=== PATIENT | female | born 1965 | race Caucasian/White ===

== ENCOUNTER 2018-06-02 12:49 | Emergency (ER) | payer OTHER ==
--- NOTE | 2018-06-02 14:14 | EDPHYS ---
Physician Documentation [facility] Name: Rosanne Botello Age: 53 yrs Sex: Female : 1965 Arrival Date: 06/02/2018 Time: 12:52 Bed 15 Private MD: ED Physician Eros Escobar HPI: 06/02 14:11 This 53 yrs old Female presents to ER via Ambulatory with complaints of Skin pm1 Problem - Face. 14:11 the patient presents with a swollen area of the left preauricular area. Description: pm1 raised, swollen. 14:11 Onset: The symptoms/episode began/occurred 2 day(s) ago. Possible cause(s): unknown. pm1 Associated signs and symptoms: Pertinent negatives: discharge, drainage, fever. Modifying factors: the symptoms are alleviated by nothing, the symptoms are aggravated by nothing. The patient has not experienced similar symptoms in the past. Patient with pimple like area to left cheek and swelling and pain to left preauricular area. No dental pain, earache, fever, chills, trismus. 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 - Social history:: Smoking status: Patient/guardian denies using tobacco. - Ebola Screening: : Patient denies travel to an Ebola-affected area in the 21 days before illness onset. ROS: 14:11 Constitutional: Negative for fever, chills, and weight loss, Eyes: Negative for injury, pm1 pain, redness, and discharge, ENT: Negative for injury, pain, and discharge, Neck: Negative for injury, pain, and swelling, Cardiovascular: Negative for chest pain, palpitations, and edema, Respiratory: Negative for shortness of breath, cough, wheezing, and pleuritic chest pain, Abdomen/GI: Negative for abdominal pain, nausea, vomiting, diarrhea, and constipation, Back: Negative for injury and pain, MS/Extremity: Negative for injury and deformity. 14:11 Neuro: Negative for headache, weakness, numbness, tingling, and seizure. 14:11 Skin: Positive for abscess, of the left cheek. Exam: 14:11 Constitutional: This is a well developed, well nourished patient who is awake, alert, pm1 and in no acute distress. Head/Face: Normocephalic, atraumatic. Eyes: Pupils equal round and reactive to light, extra-ocular motions intact. Lids and lashes normal. Conjunctiva and sclera are non-icteric and not injected. Cornea within normal limits. Periorbital areas with no swelling, redness, or edema. ENT: Nares patent. No nasal discharge, no septal abnormalities noted. Tympanic membranes are normal and external auditory canals are clear. Oropharynx with no redness, swelling, or masses, exudates, or evidence of obstruction, uvula midline. Mucous membranes moist. Neck: Trachea midline, no thyromegaly or masses palpated, and no cervical lymphadenopathy. Supple, full range of motion without nuchal rigidity, or vertebral point tenderness. No Meningismus. Chest/axilla: Normal chest wall appearance and motion. Nontender with no deformity. No lesions are appreciated. Cardiovascular: Regular rate and rhythm with a normal S1 and S2. No gallops, murmurs, or rubs. Normal PMI, no JVD. No pulse deficits. Respiratory: Lungs have equal breath sounds bilaterally, clear to auscultation and percussion. No rales, rhonchi or wheezes noted. No increased work of breathing, no retractions or nasal flaring. Abdomen/GI: Soft, non-tender, with normal bowel sounds. No distension or tympany. No guarding or rebound. No evidence of tenderness throughout. Back: No spinal tenderness. No costovertebral tenderness. Full range of motion. 14:11 Skin: Appearance: normal except for affected area, small pustule present to lateral aspect of left zygomatic area. tender mobile left preauricular lymph nodes. 14:11 Skin: No fluctuance, surrounding cellulitis to left zygomatic pustule. pm1 Vital Signs: 13:30 BP 190 / 90; Pulse 76; Resp 18; Temp 98.3; Pulse Ox 95% on R/A; Weight 122.47 kg (R); aj1 Height 5 ft. 10 in. (177.80 cm) (R); Pain 5/10; 14:31 BP 156 / 80; Pulse 72; Resp 17; Pulse Ox 97% on R/A; kr2 13:30 Body Mass Index 38.74 (122.47 kg, 177.80 cm) aj1 MDM: 13:44 Patient medically screened. pm1 14:11 Data reviewed: vital signs. Data interpreted: Pulse oximetry: on room air is 95 %. pm1 Interpretation: normal. Counseling: I had a detailed discussion with the patient and/or guardian regarding: the historical points, exam findings, and any diagnostic results supporting the discharge/admit diagnosis, the need for outpatient follow up, to return to the emergency department if symptoms worsen or persist or if there are any questions or concerns that arise at home. Administered Medications: 14:22 Drug: TORadol 60 mg Route: IM; Site: right gluteus; kr2 14:30 Follow up: Response: No adverse reaction kr2 Disposition: 17:47 Co-signature as Attending Physician, Eros Escobar MD. rn Disposition: 06/02/18 14:13 Discharged to Home. Impression: Cutaneous abscess of face. - Condition is Stable. - Discharge Instructions: Skin Abscess. - Prescriptions for Bactrim DS 800- 160 mg Oral Tablet - take 1 tablet by ORAL route every 12 hours for 10 days; 20 tablet. Diflucan 150 mg Oral Tablet - take 1 tablet by ORAL route one time for 1 day; 1 tablet. - Medication Reconciliation Form, Thank You Letter, Antibiotic Education, Prescription Opioid Use form. - Follow up: Emergency Department; When: As needed; Reason: Worsening of condition. Follow up: Private Physician; When: 2 - 3 days; Reason: Recheck today's complaints, Continuance of care, Re-evaluation by your physician. - Problem is new. - Symptoms have improved. Signatures: Shelli Smith, RN RN aj1 Eros Escobar MD MD rn Marinas, Patrick, COMPLIANCE ADMINISTRATOR COMPLIANCE ADMINISTRATOR pm1 Tonia Pandey RN RN kr2 Corrections: (The following items were deleted from the chart) 14:34 14:13 06/02/2018 14:13 Discharged to Home. Impression: Cutaneous abscess of face. kr2 Condition is Stable. Forms are Medication Reconciliation Form, Thank You Letter, Antibiotic Education, Prescription Opioid Use. Follow up: Emergency Department; When: As needed; Reason: Worsening of condition. Follow up: Private Physician; When: 2 - 3 days; Reason: Recheck today's complaints, Continuance of care, Re-evaluation by your physician. Problem is new. Symptoms have improved. pm1
--- NOTE | 2018-06-02 14:14 | ER ---
Nurse's Notes [facility] Name: Rosanne Botello Age: 53 yrs Sex: Female : 1965 Arrival Date: 06/02/2018 Time: 12:52 Bed 15 Private MD: Diagnosis: Cutaneous abscess of face Presentation: 06/02 13:24 Presenting complaint: Patient states: Swelling to the left cheek that started 2 days aj1 ago, states that it is starting to give her a headache. Pain radiates to the left jaw. Transition of care: patient was not received from another setting of care. Onset of symptoms was May 31, 2018. Risk Assessment: Do you want to hurt yourself or someone else? Patient reports no desire to harm self or others. Initial Sepsis Screen: Does the patient meet any 2 criteria? No. Patient's initial sepsis screen is negative. Does the patient have a suspected source of infection? No. Patient's initial sepsis screen is negative. Care prior to arrival: None. 13:24 Method Of Arrival: Ambulatory aj1 13:24 Acuity: RC 3 aj1 Triage Assessment: 13:30 General: Appears in no apparent distress. comfortable, Behavior is calm, cooperative, aj1 appropriate for age. Pain: Complains of pain in left cheek Pain radiates to left jaw Pain currently is 5 out of 10 on a pain scale. Neuro: Level of Consciousness is awake, alert, obeys commands. Cardiovascular: Patient's skin is warm and dry. Respiratory: Airway is patent Respiratory effort is even, unlabored, Respiratory pattern is regular, symmetrical. 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 - Social history:: Smoking status: Patient/guardian denies using tobacco. - Ebola Screening: : Patient denies travel to an Ebola-affected area in the 21 days before illness onset. Screenin:35 Abuse screen: Denies threats or abuse. Denies injuries from another. Nutritional kr2 screening: No deficits noted. Tuberculosis screening: No symptoms or risk factors identified. Fall Risk None identified. Assessment: 13:35 General: Appears in no apparent distress. comfortable, well groomed, well developed, kr2 well nourished, Behavior is calm, cooperative, appropriate for age. Pain: Complains of pain in face Pain radiates to left jaw Pain currently is 5 out of 10 on a pain scale. Quality of pain is described as aching, tender, Is continuous. Neuro: Level of Consciousness is awake, alert, obeys commands, Oriented to person, place, time, situation, Appropriate for age. Cardiovascular: Capillary refill < 3 seconds in bilateral fingers Patient's skin is warm and dry. Respiratory: Airway is patent Respiratory effort is even, unlabored, Respiratory pattern is regular, symmetrical. Derm: Skin is intact, is healthy with good turgor, Skin is pink, warm \T\ dry. Musculoskeletal: Circulation, motion, and sensation intact. 13:35 EENT: Oral mucosa is moist. Throat is clear. kr2 14:20 Reassessment: Patient appears in no apparent distress at this time. Patient and/or kr2 family updated on plan of care and expected duration. Pain level reassessed. Patient is alert, oriented x 3, equal unlabored respirations, skin warm/dry/pink. Vital Signs: 13:30 BP 190 / 90; Pulse 76; Resp 18; Temp 98.3; Pulse Ox 95% on R/A; Weight 122.47 kg (R); aj1 Height 5 ft. 10 in. (177.80 cm) (R); Pain 5/10; 14:31 BP 156 / 80; Pulse 72; Resp 17; Pulse Ox 97% on R/A; kr2 13:30 Body Mass Index 38.74 (122.47 kg, 177.80 cm) aj1 ED Course: 12:52 Patient arrived in ED. sb2 13:28 Triage completed. aj1 13:30 Arm band placed on Patient placed in an exam room. aj1 13:32 Daniel Matthew NP is PHCP. pm1 13:32 Eros Escobar MD is Attending Physician. pm1 13:35 Patient has correct armband on for positive identification. Bed in low position. Call kr2 light in reach. Side rails up X 1. Pulse ox on. NIBP on. Door closed. Warm blanket given. Head of bed elevated. 14:16 Tonia Pandey, RN is Primary Nurse. kr2 14:30 No provider procedures requiring assistance completed. Patient did not have IV access kr2 during this emergency room visit. Administered Medications: 14:22 Drug: TORadol 60 mg Route: IM; Site: right gluteus; kr2 14:30 Follow up: Response: No adverse reaction kr2 Outcome: 14:13 Discharge ordered by MD. pm1 14:30 Discharged to home ambulatory. kr2 14:30 Condition: good 14:30 Discharge instructions given to patient, Instructed on discharge instructions, follow up and referral plans. medication usage, Demonstrated understanding of instructions, follow-up care, medications, Prescriptions given X 2. 14:34 Patient left the ED. kr2 Signatures: Shelli Smith RN RN aj1 Daniel Matthew, MELON PACKER MELON PACKER pm1 Tonia Pandey, DAVID RN kr2 Liv Camara sb2 Corrections: (The following items were deleted from the chart) 13:28 13:02 Presenting complaint: aj1 aj1 14:29 13:35 Pain: Complains of pain in face Pain currently is 5 out of 10 on a pain scale. kr2 Quality of pain is described as aching, tender, Is continuous, kr2 20:12 14:27 EENT: Oral mucosa is moist. Throat is clear kr2 kr2
[2018-06-02] MEDS ORDERED: KETOROLAC 30 MG/ML INJ ONE (14:23)
== END 2018-06-02 14:34 | disposition home or self-care (01) ==
LOC: ER 12:49
DX: L02.01 Cutaneous abscess of face (principal); Z88.5 Allergy status to narcotic agent; E11.9 Type 2 diabetes mellitus without complications; Z79.4 Long term (current) use of insulin; Z79.84 Long term (current) use of oral hypoglycemic drugs; I10 Essential (primary) hypertension
CPT/HCPCS: 96372; 99283

== ENCOUNTER 2021-01-29 15:14 | Inpatient (IN) | payer OTHER, SELFPAY ==
--- OUTSIDE RECORDS SUMMARY | 2021-01-29 15:17 | XMS REPORT | Continuity of Care Document ---
:1965 Author Organization [facility] t Address [address] [place] [address] Care Team Providers Name Role Phone Kael Ferguson MD Attending Clinician Maritza Reeves DO Attending Clinician Joana Sims Attending Clinician Aneudy QUICK Attending Clinician Aneudy QUICK Admitting Clinician Payers Payer Name Policy Type Policy Number Effective Date Expiration Date S ource Problems Condition Condition Condition Status Onset Resolution Last Treating Co mments Source Name Details Category Date Date Treatment Clinician Date CHRISTINE Problem Active 2020-10-14 Memor ia (obstructi 05:10:41 l ve sleep CHRISTINE [place] apnea) (obstructi ve sleep apnea) Active Problem 10/14/2020 Enayet Rahim Leg edema Diagnosis Active 2019-05-25 Memoria 04:10:44 l Leg [place] edema Active Diagnosis 05/25/2019 Enayet Rahim Pulmonary Problem Active 2020-10-14 Me moria hypertensi 05:10:41 l on [place] Pulmonary hypertensi on Active Problem 0 Yannick Hurst Arthritis Problem Active 2020-10-14 Me moria 05:10:41 l [place] Arthritis Active Problem 10/14/2020 Enleif Hurst BMI Problem Active 2020-10-14 Memor ia 39.0-39.9, 05:10:41 l adult BMI [place] 39.0-39.9, adult Active Problem 10/14/2020 Yannick Hurst Fibromyalg Problem Active 2020-10-14 M emoria ia 05:10:41 l [place] Fibromyalg ia Active Problem 0 Yannick Hurst HTN Problem Active 2020-10-14 Memor ia (hypertens 05:10:41 l ion), HTN [place] benign (hypertens ion), benign Active Problem 10/14/2020 Yannick Hurst Breast Diagnosis Active 2017-12-18 Mem oria cancer 05:10:25 l screening Breast Megan nn cancer screening Active Diagnosis 12/18/2017 Yannick Hurst Vaginal Diagnosis Active 2018-01-09 Me moria yeast 04:10:03 l infection Vaginal Herm rudy yeast infection Active Diagnosis 01/09/2018 Yannick Hurst Tooth Diagnosis Active 2018-01-09 Mem oria abscess 04:10:03 l Tooth [place] abscess Active Diagnosis 01/09/2018 Yannick Hurst Acute Diagnosis Active 2018-12-23 Mem oria tracheobro 05:10:57 l nchitis Acute [place] tracheobro nchitis Active Diagnosis 12/23/2018 Yannick Hurst SOB Diagnosis Active 2018-12-23 Mem oria (shortness 05:10:57 l of breath) SOB Octavio n (shortness of breath) Active Diagnosis 12/23/2018 Yannick Hurst Flu-like Diagnosis Active 2020-03-05 M emoria symptoms 04:11:02 l Flu-like Octavio n symptoms Active Diagnosis 03/05/2020 Enleif Hurst Herpes Diagnosis Active 2019-08-09 Mem oria zoster 04:10:53 l without Herpes [place] complicati zoster on without complicati on Active Diagnosis 08/09/2019 Enleif Hurst [place] eye Diagnosis Active 2019-08-09 M emoria disease of 04:10:53 l both eyes [place] eye Her sharp disease of both eyes Active Diagnosis 08/09/2019 Enayet Rahim Advice Diagnosis Active 2020-03-05 Mem oria given 04:11:02 l about 2019 Advice Herm rudy novel given coronaviru 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 Active Diagnosis 03/05/2020 Enswapnilet Rahim Fatigue, Diagnosis Active 2020-03-17 M emoria unspecifie 04:10:23 l d type Fatigue, Octavio n unspecifie d type Active Diagnosis 03/17/2020 Enswapnilet Rahim CHF with Diagnosis Active 2020-07-28 M emoria left 04:10:44 l ventricula CHF with He rmann r left diastolic ventricula dysfunctio r n, NYHA diastolic class 2 dysfunctio n, NYHA class 2 Active Diagnosis 07/28/2020 Enayet Rahim Respirator Diagnosis Active 2020-07-28 Memoria y failure 04:10:44 l for > 28 [place] days Respirator y failure for > 28 days Active Diagnosis 07/28/2020 Enswapnilet him Type 2 Problem Active 2020-10-14 Memor ia diabetes 05:10:41 l mellitus Type 2 Octavio n without diabetes complicati mellitus on, without without complicati long-term on, current without use of long-term insulin current use of insulin Active Problem 10/14/2020 Enayet Rahim Anxiety Problem Active 2020-10-14 Keith sanaz 05:10:41 l Anxiety [place] Active Problem 10/14/2020 Enswapnilet Rahim Cervical Diagnosis Active 2017-08-05 M emoria stenosis 04:11:49 l of spine Cervical Herm rudy stenosis of spine Active Diagnosis 08/05/2017 Enayet Rahim Encounter Diagnosis Active 2017-08-05 Memoria to 04:11:49 l establish [place] care Encounter to establish care Active Diagnosis 08/05/2017 Enleif Karimim Allergies, Adverse Reactions, Alerts Allergy Allergy Status Severity Reaction(s) Onset Inactive Treating Comm ents Source Name Type Date Date Clinician narco narco Active nightmares Memori a 9-21 l 00:00: [place] 00 hydrocod DA Active [facility] 00:[facility]: [address] Social History Social Habit Start Date Stop Date Quantity Comments Source Sex Assigned At [facility] Medications Ordered Filled Start Stop Current Ordering Indication Dosage Frequency Signature Comments Components Source Medication Medication Date Date Medication? Clinician (SIG) Name Name Pravastatin 2020-1 Yes Kate 1 tablet M emoria Sodium 0-06 Teressa l 04:10: [place] 46 Aspirin 2020-1 Yes Kate 1 tablet Memor ia Adult Low 0-06 Teressa l Dose 04:10: [place] 46 Gabapentin 2019- Yes Kate as Memori a 0-06 Te[place] directed l 04:10: [place] 46 Novolin N 2019- Yes Kate 20 units Mem oria 0-06 Teressa morning 15 l 04:10: units at [place] 46 night Ketorolac 2020- Yes Kate 1 tablet Mem oria Tromethamin 0-06 Teressa with food l e 04:10: or milk as [place] 46 needed Metoprolol 2019- Yes Kate 1 tablet Me moria Tartrate 0-06 Teressa with food l 04:10: [place] 46 Cyclobenzap 2019- Yes Kate 1 tablet M emoria rine HCl 0-06 Teressa as needed l 04:10: [place] 46 Lasix 2020-1 Yes Kate 1 tablet Memoria 0-06 Teressa l 04:10: [place] 46 Bumex 2020-1 Yes Kate 1 tablet Memoria 0-06 Teressa l 04:10: [place] 46 Novolin 2020-1 Yes Kate 45 units Memor ia 70/30 0-06 Teressa l 04:10: [place] 46 Olmesartan 2020-1 Yes Kate 1 tablet Me moria Medoxomil 0-06 Teressa l 04:10: [place] 46 Metolazone 2020-1 Yes Kate 1 tablet Me moria 0-06 Teressa l 04:10: [place] 46 Lisinopril 2020-0 Yes Kate 1 tablet Me moria 5-26 Teressa l 04:10: [place] Azithromyci 2020-0 Yes Kate 2 tablets Memoria n 5-26 Teressa on the l 04:10: first day, [place] then 1 tablet daily for 4 days Losartan 2020-0 Yes Kate 1 tablet Keith sanaz Potassium 5-26 Teressa l 04:10: [place] Oseltamivir 2020-0 Yes Kate 1 capsule Memoria Phosphate 5-26 Teressa l 04:10: PredniSONE 2020-0 Yes Kate 1 tablet Me moria 5-26 Teressa l 04:10: Metolazone 2020-0 Yes Kate 1 tablet Me moria 3-11 Teressa l 00:00: Azithromyci 2019-1 Yes Kate 2 tablet M emoria n 2-27 Teressa on the l 00:00: first day, then 1 tablet daily for four days Gabapentin 2019- Yes Kate 1 capsule M emoria 2-18 Teressa l 05:10: [place] 38 Zofran 2019- Yes Kate 1 tablet Memori a 1-21 Teressa l 00:00: Metoprolol 2019- Yes Kate TAKE ONE Me moria Tartrate 0-18 Teressa (1) l 04:10: TABLET(S) [place] BY MOUTH TWICE A DAY WITH FOOD. Gabapentin 2019- Yes Kate 1 capsule M emoria 0-18 Teressa l 04:10: [place] 55 Ciprofloxac 2019- Yes Kate 1 drop Mem oria in HCl 0-14 Teressa into l 00:00: affected eye while awake Cyclobenzap 2019-0 Yes Kate 1 tablet M emoria rine HCl 8-03 Teressa as needed l 04:10: [place] 46 Metoprolol 2019-0 Yes Kate 2 tablets M emoria Tartrate 8-03 Teressa in the l 04:10: morning [place] 44 and 1 in the evening Lasix 2019-0 Yes Kate 1 tablet Memoria 8-03 Teressa l 04:10: [place] 46 Olmesartan 2019-0 Yes Kate 1 tablet Me moria Medoxomil 7-25 Teressa l 00:00: Cyclobenzap 2019-0 Yes Kate 1 tablet M emoria rine HCl 3-29 Teressa as needed l 00:00: ProAir 2019-0 Yes Kate 2 puffs as Keith sanaz RespiClick 2-27 Teressa needed l 00:00: PredniSONE 2019-0 Yes Kate 1 tablet Me moria 2-27 Teressa l 00:00: Ketorolac 2019-0 Yes Kate 1 tablet Mem oria Tromethamin 2-27 Teressa with food l e 00:00: or milk as needed Nebulizer 2018-1 Yes Kate as Memoria 2-21 Teressa directed l 00:00: Albuterol 2018-1 Yes Kate 3 ml as Keith sanaz Sulfate 2-21 Teressa needed l 00:00: Levaquin 2018-1 Yes Kate 1 tablet Keith sanaz 2-21 Teressa l 00:00: Metoprolol 2018-1 Yes Kate 1 tablet Me moria Tartrate 2-20 Teressa with food l 05:11: 21 ProAir HFA 2018-1 Yes Kate 2 puffs as Memoria 2-13 Teressa needed l 00:00: Benzonatate 2018-1 Yes Kate 1 capsule Memoria 2-13 Teressa l 00:00: Humulin R 2018-1 Yes Kate as Memoria 0-06 Teressa directed l 04:11: 36 Flexeril 2018-0 Yes Kate 1 tablet Keith sanaz 5-13 Teressa l 00:00: Flexeril 2018-0 Yes Kate 1 tablet Keith sanaz 4-03 Teressa l 00:00: Losartan 2018-0 Yes Kate 1 tablet Keith sanaz Potassium 3-13 Teressa l 00:00: Amoxicillin 2018-0 Yes Kate 1 tablet M emoria 3-13 Teressa l 00:00: Diflucan 2018-0 Yes Kate 1 tablet Keith sanaz 3-13 Teressa l 00:00: Humulin R 2018-0 Yes Kate as Memoria 2-26 Teressa directed l 05:10: Ketorolac 2018-0 Yes Kate 1 tablet Mem oria Tromethamin 2-12 Teressa with food l e 00:00: or milk as needed Ketorolac 2018-0 Yes Kate 1 tablet Mem oria Tromethamin 1-03 Teressa with food l e 00:00: or milk as needed Humulin R 2017-1 Yes Kate as Memoria 0-17 Teressa directed l 00:00: GlipiZIDE 2017-1 Yes Kate 1 tablet Mem oria ER 0-05 Teressa l 00:00: Gabapentin 2017-1 Yes Kate as Memori a 0-05 Teressa directed l 00:00: [place] 00 Immunizations Ordered Immunization Filled Immunization Date Status Commen ts Source Name Name Covid-19 Vaccine 2020-12-[address] [facility] (Pfizer/[employer] Vital Signs Vital Name Observation Time Observation Value Comments Source Weight 2020-07-13 21:15:00 [facility] [place] Height 2020-07-13 21:15:00 [facility] [place] Height 2020-03-13 20:45:00 [facility] [place] Height 2020-03-04 20:45:00 [facility] [place] Weight 2019-11-15 22:45:00 [facility] [place] Height 2019-11-15 22:45:00 [facility] [place] Temperature Oral (F) 2019-11-15 22:45:00 97.1 F [facility] [place] Diastolic (mm Hg) 2019-11-15 22:45:00 Mem orial [place] Systolic (mm Hg) 2019-11-15 22:45:00 Keith rial [place] Weight 2019-09-12 17:15:00 [facility] [place] Height 2019-09-12 17:15:00 [facility] [place] Temperature Oral (F) 2019-09-12 17:15:00 98.2 F [facility] [place] Diastolic (mm Hg) 2019-09-12 17:15:00 Mem orial [place] Systolic (mm Hg) 2019-09-12 17:15:00 Keith rial [place] Weight 2019-07-31 14:45:00 [facility] [place] Height 2019-07-31 14:45:00 [facility] [place] Temperature Oral (F) 2019-07-31 14:45:00 97.5 F [facility] [place] Diastolic (mm Hg) 2019-07-31 14:45:00 Mem orial [place] Systolic (mm Hg) 2019-07-31 14:45:00 Keith rial [place] Temperature Oral (F) 2019-05-16 19:45:00 98.6 F [facility] [place] Diastolic (mm Hg) 2019-05-16 19:45:00 Mem orial [place] Systolic (mm Hg) 2019-05-16 19:45:00 Keith rial [place] Weight 2019-05-16 19:45:00 [facility] [place] Height 2019-05-16 19:45:00 [facility] [place] Weight 2018-12-19 14:45:00 [facility] [place] Height 2018-12-19 14:45:00 [facility] [place] Temperature Oral (F) 2018-12-19 14:45:00 98.1 F [facility] [place] Diastolic (mm Hg) 2018-12-19 14:45:00 Mem orial [place] Systolic (mm Hg) 2018-12-19 14:45:00 Keith rial [place] Weight 2018-10-04 15:15:00 [facility] [place] Height 2018-10-04 15:15:00 [facility] [place] Temperature Oral (F) 2018-10-04 15:15:00 99.3 F [facility] [place] Diastolic (mm Hg) 2018-10-04 15:15:00 Mem orial [place] Systolic (mm Hg) 2018-10-04 15:15:00 Keith rial [place] Weight 2018-07-23 20:15:00 [facility] [place] Height 2018-07-23 20:15:00 [facility] [place] Temperature Oral (F) 2018-07-23 20:15:00 98.5 F [facility] [place] Diastolic (mm Hg) 2018-07-23 20:15:00 Mem orial [place] Systolic (mm Hg) 2018-07-23 20:15:00 Keith rial [place] Weight 2018-01-02 13:45:00 [facility] [place] Height 2018-01-02 13:45:00 [facility] [place] Temperature Oral (F) 2018-01-02 13:45:00 97.7 F [facility] [place] Diastolic (mm Hg) 2018-01-02 13:45:00 Mem orial [place] Systolic (mm Hg) 2018-01-02 13:45:00 Keith rial [place] Weight 2017-12-04 21:15:00 [facility] [place] Height 2017-12-04 21:15:00 [facility] [place] Temperature Oral (F) 2017-12-04 21:15:00 98.3 F [facility] [place] Diastolic (mm Hg) 2017-12-04 21:15:00 Mem orial [place] Systolic (mm Hg) 2017-12-04 21:15:00 Keith rial [place] Weight 2017-07-27 21:15:00 [facility] [place] Height 2017-07-27 21:15:00 [facility] [place] Temperature Oral (F) 2017-07-27 21:15:00 97.7 F [facility] [place] Diastolic (mm Hg) 2017-07-27 21:15:00 Mem orial [place] Systolic (mm Hg) 2017-07-27 21:15:00 Keith rial [place] Procedures This patient has no known procedures. Plan of Care Planned Activity Planned Date Details Comments Source Future Scheduled 2021-01-07 COVID-19 VACCINE ([facility] - [facility] series[facility] [code = COVID-19 VACCINE (2 - Pfizer 2-dose series)] Future Scheduled 2020-10-[address] [facility] - Test 00:00:00 (12+) [code = Medical Center DEPRESSION SCREENING (12+)] Future Scheduled 2020-06-[address] [facility] - Test 00:00:00 (#1) [code = [facility] INFLUENZA VACCINE (#1)] Future Scheduled 2017 SHINGLES VACCINES ([address] [facility] - Test 00:00:00 of 2) [code = Medical Center SHINGLES VACCINES (1 of 2)] Future Scheduled [address] [facility] 00:00:00 (procedure) [code = [facility] [id number]] Future Scheduled [address] [facility] 00:[facility]:00 [facility] of [facility] cervix (procedure) [code = 361183539] Future Scheduled 1986 DTAP/TDAP/TD VACCINES [facility] - Test 00:00:00 (1 - Tdap) [code = Medical C enter DTAP/TDAP/TD VACCINES (1 - Tdap)] Future Scheduled 1985 HEPATITIS C SCREENING [facility] Test 00:00:00 [code = HEPATITIS C Medical Center SCREENING] Future Scheduled [address] [facility] Test 00[facility]00:00 [facility] of [facility] breast (procedure) [code = 035200904] Future Scheduled [address] [facility] 00:00:00 [facility] of [facility] colon (procedure) [code = 477049733] Encounters Start End Encounter Admission Attending Care Care Encounter Source Date/Time Date/Time Type Type Clinicians Facility Department ID 2020-12-15 2020-12-15 Emergency Leandro, [facility] [id number] 11:12:00 13:27:00 Kiara Matthew [id number] [place] [id number] [place] [id number] 2020-10-30 2020-10-31 Emergency Carmen Castillo [facility] [id number] 16:02:00 13:32:00 RonnisadaffrankMonse Vipul [id number] [place] [id number] [place] [id number] 2020-10-13 2020-10-13 Outpatient Inpatient Inpatient [id number] [facility] 15:15:00 15:15:00 Providers [facility]iders [facility] 2020-07-13 2020-07-13 Outpatient Inpatient Inpatient [id number] [facility] 16:15:00 16:15:00 Providers Providers [facility] 2020-03-18 2020-03-18 Outpatient Inpatient Inpatient [id number] [facility] 13:36:00 13:36:00 Providers Providers [facility] 2020-03-13 2020-03-13 Outpatient Inpatient Inpatient [id number] [facility] 15:45:00 15:45:00 Providers Providers [facility] 2020-03-06 2020-03-06 Outpatient Inpatient Inpatient [id number] [facility] 10:57:00 10:57:00 Providers Providers [facility] 2020-03-05 2020-03-05 Outpatient Inpatient Inpatient [id number] [facility] 10:38:00 10:38:00 Providers Providers [facility] 2020-03-04 2020-03-04 Outpatient Inpatient Inpatient [id number] [facility] 15:45:00 15:45:00 Providers Providers [facility] 2020-02-21 2020-02-21 Outpatient Inpatient Inpatient [id number] [facility] 11:41:00 11:41:00 Providers Providers [facility] 2020-02-04 2020-02-04 Outpatient Inpatient Inpatient [id number] [facility] 15:49:00 15:49:00 Providers Providers [facility] 2020-02-04 2020-02-04 Outpatient Inpatient Inpatient [id number] [facility] 15:06:00 15:06:00 Providers Providers [facility] 2020-01-06 2020-01-06 Outpatient Inpatient Inpatient [id number] [facility] 09:57:00 09:57:00 Providers Providers [facility] 2020-01-01 2020-01-01 Outpatient Inpatient Inpatient [id number] [facility] 17:46:00 17:46:00 Providers Providers [facility] 2019-11-15 2019-11-15 Outpatient Inpatient Inpatient [id number] [facility] 16:45:00 16:45:00 Providers Providers [facility] 2019-10-18 2019-10-18 Outpatient Inpatient Inpatient [id number] [facility] 10:34:00 10:34:00 Providers Providers [facility] 2019-09-12 2019-09-12 Outpatient Inpatient Inpatient [id number] [facility] 11:15:00 11:15:00 Providers Providers [facility] 2019-09-12 2019-09-12 Outpatient Inpatient Inpatient [id number] [facility] 11:15:00 11:15:00 Providers Providers [facility] 2019-09-12 2019-09-12 Outpatient Inpatient Inpatient [id number] [facility] 11:15:00 11:15:00 Providers Providers [facility] 2019-09-12 2019-09-12 Outpatient Inpatient Inpatient [id number] [facility] 11:15:00 11:15:00 Providers Providers [facility] 2019-08-30 2019-08-30 Outpatient Inpatient Inpatient [id number] [facility] 08:41:00 08:41:00 Providers Providers [facility] 2019-07-31 2019-07-31 Outpatient Inpatient Inpatient [id number] [facility] 09:45:00 09:45:00 Providers Providers [facility] 2019-05-16 2019-05-16 Outpatient Inpatient Inpatient [id number] [facility] 14:45:00 14:45:00 Providers Providers [facility] 2019-01-21 2019-01-21 Outpatient Inpatient Inpatient [id number] [facility] 16:17:00 16:17:00 Providers Providers [facility] 2018-12-19 2018-12-19 Outpatient Inpatient Inpatient [id number] [facility] 08:45:00 08:45:00 Providers Providers [facility] 2018-10-12 2018-10-12 Outpatient Inpatient Inpatient [id number] [facility] 15:48:00 15:48:00 Providers Providers [facility] 2018-10-09 2018-10-09 Outpatient Inpatient Inpatient [id number] [facility] 10:13:00 10:13:00 Providers Providers [facility] 2018-10-04 2018-10-04 Outpatient Inpatient Inpatient [id number] [facility] 09:15:00 09:15:00 Providers Providers [facility] 2018-07-25 2018-07-25 Outpatient Inpatient Inpatient [id number] [facility] 08:59:00 08:59:00 Providers Providers [facility] 2018-07-23 2018-07-23 Outpatient Inpatient Inpatient [id number] [facility] 15:15:00 15:15:00 Providers Providers [facility] 2018-01-02 2018-01-02 Outpatient Inpatient Inpatient [id number] [facility]inic 08:45:00 08:45:00 Providers Providers al [facility] 2017-12-04 2017-12-04 Outpatient Inpatient Inpatient [id number] [facility]inic 15:15:00 15:15:00 Providers Providers [facility] 2017-10-13 2017-10-13 Outpatient Inpatient Inpatient [id number] [facility] 14:06:00 14:06:00 Providers Providers [facility] 2017-09-12 2017-09-12 Outpatient Inpatient Inpatient [id number] [facility]inic 15:29:00 15:29:00 Providers Providers al [facility] 2017-08-07 2017-08-07 Outpatient Inpatient Inpatient [id number] [facility] 14:38:00 14:38:00 Providers Providers [facility] 2017-07-27 2017-07-27 Outpatient Inpatient Inpatient [id number] [facility] 16:15:00 16:15:00 Providers Providers [facility] Results This patient has no known results.
--- NOTE | 2021-01-29 16:20 | RAD REPORT ---
EXAM DESCRIPTION: RAD - Chest Single View - 01/29/2021 4:05 pm CLINICAL HISTORY: DYSPNEA Chest pain. COMPARISON: No comparisons FINDINGS: Portable technique limits examination quality. Moderate bilateral pulmonary opacities are present likely representing pulmonary edema or pneumonia. The heart is moderately enlarged in size. No displaced fractures.
[2021-01-29 16:59] LABS: Absolute Lymphocytes (CBC) 2.7 K/uL (0.7-4.9); Basophils % 0.6 % (0-1.3); Hematocrit 34.4 % (36.0-45.0); Lymphocytes % 33.3 % (15.3-44.8); MPV 8.7 fL (7.6-11.3); RBC Red Blood Cell Count 4.02 M/uL (3.86-4.86)
[2021-01-29 17:07] LABS: Protime INR 1.15
[2021-01-29 17:25] LABS: ALT/SGPT 9 U/L (12-78); AST/SGOT 12 U/L (15-37); Albumin 2.9 g/dL (3.4-5.0); Alkaline Phosphatase 91 U/L (45-117); BUN Blood Urea Nitrogen 11 mg/dL (7-18); Bicarbonate 40 mmol/L (21-32); Bilirubin Direct < 0.1 mg/dL (0-0.2); Bilirubin Total 0.4 mg/dL (0.2-1.0); Glucose Level 259 mg/dL (74-106); Magnesium 2.2 mg/dL (1.8-2.4); NT PRO-BNP 409 pg/mL (<125); Potassium 4.1 mmol/L (3.5-5.1); Protein, Total 7.9 g/dL (6.4-8.2); Sodium Level 138 mmol/L (136-145); Troponin (Emerg Dept Use Only) < 0.02 ng/mL (0.0-0.045)
--- NOTE | 2021-01-29 18:21 | EDPHYS ---
Physician Documentation [facility] Name: Rosanne Botello Age: 55 yrs Sex: Female : 1965 Arrival Date: 01/29/2021 Time: 15:25 Bed 20 Private MD: ED Physician Giuseppe Griggs HPI: 01/29 19:59 This 55 yrs old Female presents to ER via EMS with complaints of Respiratory kb Distress. 19:59 The patient has shortness of breath at rest, with light activity. Onset: The kb symptoms/episode began/occurred 1 week(s) ago. Duration: The symptoms are continuous. The patient's shortness of breath is aggravated by exertion. Associated signs and symptoms: Pertinent positives: chest pain. Severity of symptoms: At their worst the symptoms were moderate in the emergency department the symptoms are unchanged. The patient has experienced similar episodes in the past. The patient has not recently seen a physician. Pt reports shortness of breath and swelling that started a week ago. States she developed chest pain last night that resolved after nitro received in route by EMS. 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 LMP N/A - Post-menopause bw Historical: - Allergies: 15:38 [place]; bw - Home Meds: 20:05 losartan 50 mg oral tab 1 tab once daily [Active]; Procardia 30 mg cap Oral cap 1 cap sf daily [Active]; metoprolol tartrate 50 mg oral tab 1 tab 2 times per day [Active]; gabapentin 300 mg oral cap 1 cap 3 times per day [Active]; Novolin 70/30 In[place]let 60 units Sub-Q twice a day [Active]; Bumex 2 mg tab Oral 2 mg twice a day [Active]; Toradol Oral 10 mg twice a day [Active]; - PMHx: 15:38 Diabetes - NIDDM; Fibromyalgia; Hypertension; stenosis in neck; CHF; bw - Immunization history:: Adult Immunizations up to date, Client reports receiving the 1st dose of the Covid vaccine. - Social history:: Smoking status: Patient/guardian denies using tobacco. ROS: 19:57 Constitutional: Negative for fever, chills, and weight loss, Abdomen/GI: Negative for kb abdominal pain, nausea, vomiting, diarrhea, and constipation, MS/Extremity: Negative for injury and deformity, Skin: Negative for injury, rash, and discoloration, Neuro: Negative for headache, weakness, numbness, tingling, and seizure. 19:57 Cardiovascular: Positive for chest pain, edema, orthopnea, Negative for palpitations, paroxysmal nocturnal dyspnea. 19:57 Respiratory: Positive for dyspnea on exertion, shortness of breath. Exam: 19:58 Constitutional: This is a well developed, well nourished patient who is awake, alert, kb and in no acute distress. Head/Face: Normocephalic, atraumatic. Cardiovascular: Regular rate and rhythm with a normal S1 and S2. No gallops, murmurs, or rubs. No pulse deficits. Abdomen/GI: Soft, non-tender. No distention Skin: Warm, dry with normal turgor. Normal color. MS/ Extremity: Pulses equal, no cyanosis. Neurovascular intact. Full, normal range of motion. Neuro: Awake and alert, GCS 15, oriented to person, place, time, and situation. Moves all extremities. Normal gait. 19:58 Respiratory: mild respiratory distress is noted, Respirations: labored breathing, Breath sounds: decreased breath sounds, that are mild, are located in both bases. 20:01 Cardiovascular: Edema: pedal edema. kb Vital Signs: 15:26 BP 165 / 85; Pulse 74; Resp 14; Temp 98.4(O); Pulse Ox 99% on 4 lpm NC; bw 16:42 BP 162 / 74; Pulse 72; Resp 17; Pulse Ox 100% on 3.5 lpm NC; bw 19:48 BP 153 / 70; Pulse 73; Resp 18; Pulse Ox 100% 3 lpm ; Weight 138.8 kg; Height 5 ft. 10 sf in. (177.80 cm); 20:00 BP 152 / 72; Pulse 73; Resp 18; Pulse Ox 99% ; sf 19:48 Body Mass Index 43.91 (138.80 kg, 177.80 cm) MDM: 15:27 Patient medically screened. kb 18:17 Data reviewed: vital signs, nurses notes. Data interpreted: Pulse oximetry: on room air kb is 100 %. Interpretation: normal. Counseling: I had a detailed discussion with the patient and/or guardian regarding: the historical points, exam findings, and any diagnostic results supporting the discharge/admit diagnosis, lab results, radiology results, the need for further work-up and treatment in the hospital. 01/29 15:27 Order name: Basic Metabolic Panel kb 01/29 15:27 Order name: CBC with Diff kb 01/29 15:27 Order name: LFT's kb 01/29 15:27 Order name: Magnesium kb 01/29 15:27 Order name: NT PRO-BNP kb 01/29 15:27 Order name: PT-INR; Complete Time: 17:11 kb 01/29 15:27 Order name: Troponin (emerg Dept Use Only) kb 01/29 15:28 Order name: Basic Metabolic Panel; Complete Time: 17:26 EDMS 01/29 15:28 Order name: CBC with Automated Diff; Complete Time: 17:11 EDMS 01/29 15:28 Order name: Liver (Hepatic) Function; Complete Time: 17:26 EDMS 01/29 15:28 Order name: Magnesium; Complete Time: 17:26 EDMS 01/29 15:28 Order name: NT PRO-BNP; Complete Time: 17:26 EDMS 01/29 15:28 Order name: Troponin (Emerg Dept Use Only); Complete Time: 17:26 EDMS 01/29 15:27 Order name: XRAY Chest (1 view); Complete Time: 16:24 kb 01/29 15:27 Order name: EKG; Complete Time: 15:28 kb 01/29 15:27 Order name: Cardiac monitoring; Complete Time: 16:44 kb 01/29 15:27 Order name: EKG - Nurse/Tech; Complete Time: 15:29 kb 01/29 15:27 Order name: IV Saline Lock; Complete Time: 16:44 kb 01/29 15:27 Order name: Labs collected and sent; Complete Time: 16:44 kb 01/29 15:27 Order name: O2 Per Protocol; Complete Time: 15:29 kb 01/29 15:27 Order name: O2 Sat Monitoring; Complete Time: 15:29 kb 01/29 18:26 Order name: SARS-COV-2 RT PCR; Complete Time: 18:44 EDMS 01/29 18:57 Order name: CONS Physician Consult EDMS Administered Medications: 18:58 Drug: Lasix (furosemide) 20 mg Route: IVP; Site: left forearm; bw 20:06 Follow up: Response: No adverse reaction sf Disposition: 01/30 07:33 Co-signature as Attending Physician, Giuseppe Griggs MD I agree with the assessment and brayan plan of care. Disposition: 01/29/21 18:20 Hospitalization ordered by Lucho Woods for Observation. Preliminary diagnosis are Chest pain, unspecified, Unspecified combined systolic (congestive) and diastolic (congestive) heart failure. - Bed requested for Telemetry/MedSurg (observation). - Status is Observation. sf - Condition is Stable. - Problem is new. - Symptoms are unchanged. Signatures: Dispatcher [employer] [facility] Charline Tucker, NEEL ROMEO-Nelida Em, RN RN Giuseppe Fernandez MD MD cha Fitzpatrick, Steven, RN RN sf Webb, Bethany, RN RN Corrections: (The following items were deleted from the chart) 01/29 17:39 17:17 CORONAVIRUS+.DOC ordered. [facility] 19:55 18:20 Hospitalization Ordered by Lucho Woods for Observation. Preliminary diagnosis dw is Chest pain, unspecified; Unspecified combined systolic (congestive) and diastolic (congestive) heart failure. Bed requested for Telemetry/MedSurg (observation). Status is Observation. Condition is Stable. Problem is new. Symptoms are unchanged. kb 20:01 19:58 Constitutional: This is a well developed, well nourished patient who is awake, kb alert, and in no acute distress. Head/Face: Normocephalic, atraumatic. Cardiovascular: Regular rate and rhythm with a normal S1 and S2. No gallops, murmurs, or rubs. No pulse deficits. Abdomen/GI: Soft, non-tender. No distention Skin: Warm, dry with normal turgor. Normal color. MS/ Extremity: Pulses equal, no cyanosis. Neurovascular intact. Full, normal range of motion. Neuro: Awake and alert, GCS 15, oriented to person, place, time, and situation. Moves all extremities. Normal gait. kb 20:54 19:55 01/29/2021 18:20 Hospitalization Ordered by Lucho Woods for Observation. sf Preliminary diagnosis is Chest pain, unspecified; Unspecified combined systolic (congestive) and diastolic (congestive) heart failure. Bed requested for Telemetry/MedSurg (observation). Status is Observation. Condition is Stable. Problem is new. Symptoms are unchanged. dw
--- NOTE | 2021-01-29 18:21 | ER ---
Nurse's Notes [facility] Name: Rosanne Botello Age: 55 yrs Sex: Female : 1965 Arrival Date: 01/29/2021 Time: 15:25 Bed 20 Private MD: Diagnosis: Chest pain, unspecified;Unspecified combined systolic (congestive) and diastolic (congestive) heart failure Presentation: 01/29 15:26 Chief complaint: EMS states: Pt SOB x 2 days. Hx of CHF. PT c/o CP and SOB en route. bw Received 0.8 Nitro spray en route and 1/2 inch of nitro paste on L chest. Pt c/o CP. NSR on 12 lead. Coronavirus screen: At this time, the client does not indicate any symptoms associated with coronavirus-19. Ebola Screen: No symptoms or risks identified at this time. Initial Sepsis Screen: Does the patient meet any 2 criteria? No. Patient's initial sepsis screen is negative. Does the patient have a suspected source of infection? No. Patient's initial sepsis screen is negative. Risk Assessment: Do you want to hurt yourself or someone else? Patient reports no desire to harm self or others. Onset of symptoms was January 27, 2021. 15:26 Method Of Arrival: EMS: [facility] bw 15:26 Acuity: RC 2 bw Triage Assessment: 15:38 General: Appears in no apparent distress. Behavior is calm, cooperative, appropriate bw for age. Pain: Denies pain. Current management is with nitro given by EMS. Neuro: No deficits noted. Cardiovascular: Reports chest pain, since this AM, but has now subsided. 15:38 Respiratory: Reports shortness of breath Breath sounds are coarse bilaterally. Onset: bw The symptoms/episode began/occurred yesterday, GI: No deficits noted. : No deficits noted. Derm: No deficits noted. Musculoskeletal: No deficits noted. 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 LMP N/A - Post-menopause bw Historical: - Allergies: 15:38 [place]; bw - Home Meds: 20:05 losartan 50 mg oral tab 1 tab once daily [Active]; Procardia 30 mg cap Oral cap 1 cap sf daily [Active]; metoprolol tartrate 50 mg oral tab 1 tab 2 times per day [Active]; gabapentin 300 mg oral cap 1 cap 3 times per day [Active]; Novolin 70/30 Innolet 60 units Sub-Q twice a day [Active]; Bumex 2 mg tab Oral 2 mg twice a day [Active]; Toradol Oral 10 mg twice a day [Active]; - PMHx: 15:38 Diabetes - NIDDM; Fibromyalgia; Hypertension; stenosis in neck; CHF; bw - Immunization history:: Adult Immunizations up to date, Client reports receiving the 1st dose of the Covid vaccine. - Social history:: Smoking status: Patient/guardian denies using tobacco. Screenin:42 Abuse screen: Denies threats or abuse. Nutritional screening: No deficits noted. bw Tuberculosis screening: No symptoms or risk factors identified. Fall Risk None identified. Assessment: 16:42 Cardiovascular: Rhythm is sinus rhythm. Respiratory: Airway is patent Respiratory bw effort is even, unlabored, using tripod position. 19:57 General: Appears in no apparent distress. comfortable, Behavior is calm, cooperative. sf Pain: Denies pain. Neuro: No deficits noted. Level of Consciousness is awake, alert, Oriented to person, place, time, situation. Cardiovascular: Patient's skin is warm and dry. Respiratory: Reports shortness of breath on exertion Airway is patent Respiratory effort is even, unlabored, Respiratory pattern is regular, symmetrical. GI: No deficits noted. No signs and/or symptoms were reported involving the gastrointestinal system. : No deficits noted. No signs and/or symptoms were reported regarding the genitourinary system. Derm: No deficits noted. No signs and/or symptoms reported regarding the dermatologic system. Musculoskeletal: No deficits noted. No signs and/or symptoms reported regarding the musculoskeletal system. Vital Signs: 15:26 BP 165 / 85; Pulse 74; Resp 14; Temp 98.4(O); Pulse Ox 99% on 4 lpm NC; bw 16:42 BP 162 / 74; Pulse 72; Resp 17; Pulse Ox 100% on 3.5 lpm NC; bw 19:48 BP 153 / 70; Pulse 73; Resp 18; Pulse Ox 100% 3 lpm ; Weight 138.8 kg; Height 5 ft. 10 sf in. (177.80 cm); 20:00 BP 152 / 72; Pulse 73; Resp 18; Pulse Ox 99% ; sf 19:48 Body Mass Index 43.91 (138.80 kg, 177.80 cm) sf Vitals: 19:48 Cardiac Rhythm Assessment Sinus rhythm. sf ED Course: 15:25 Patient arrived in ED. ds1 15:26 Jil Sutton RN is Primary Nurse. bw 15:27 [facility]C [facility] kb 15:27 Giuseppe Griggs MD is Attending Physician. kb 15:37 Triage completed. bw 15:38 Arm band placed on right wrist. bw 16:06 XRAY Chest (1 view) In Process Unspecified. EDMS 16:42 Patient has correct armband on for positive identification. Call light in reach. Side bw rails up X2. 16:42 No provider procedures requiring assistance completed. Maintain EMS IV. Dressing bw intact. Good blood return noted. Gauge \T\ site: 20g and LFA. 18:20 Lucho Woods is Hospitalizing Provider. kb 20:01 Primary Nurse role handed off by Jil Sutton RN 20:01 Stanley Gramajo, DAVID is Primary Nurse. sf 20:05 Patient admitted, IV remains in place. sf 20:07 Troponin (emerg Dept Use Only) Sent. sf 20:07 NT PRO-BNP Sent. sf 20:07 Magnesium Sent. sf 20:07 LFT's Sent. sf 20:07 CBC with Diff Sent. sf 20:07 Basic Metabolic Panel Sent. sf 20:13 Attempt to call report to floor nurse ([id number]), not able to take report at this time due sf to medicating another patient, will call ED when ready for report. Administered Medications: 18:58 Drug: Lasix (furosemide) 20 mg Route: IVP; Site: left forearm; bw 20:06 Follow up: Response: No adverse reaction sf Output: 20:48 Urine: 900ml (Voided); Total: 900ml. bb Outcome: 18:20 Decision to Hospitalize by Provider. kb 20:14 Condition: stable sf 20:14 Instructed on the need for admit. 20:27 Admitted to Tele accompanied by tech, via wheelchair, room 428, Report called to casie Cobian RN 20:54 Patient left the ED. sf Signatures: Dispatcher [employer] EDMS Charline Tucker FNP-C LOAN APPROVER-oYvana Connelly ds1 Jhoana Andujar RN RN Stanley Pinon, RN RN sf Sutton, Jil, RN RN bw
[2021-01-29] MEDS ORDERED: FUROSEMIDE 20 MG/ 2ML VIAL ONE (19:09)
[2021-01-29] MEDS ORDERED: ALBUTEROL 2.5 MG/3 ML NEB SOL NEB PRN (21:17)
[2021-01-29] MEDS ORDERED: METOPROLOL TAR 50 MG TAB PO SCH (21:17)
[2021-01-29] MEDS ORDERED: ONDANSETRON 4 MG/2 ML VIAL IV PRN (21:17)
--- NOTE | 2021-01-29 21:38 | P.HP ---
Certification for Inpatient Patient admitted to: Inpatient With expected LOS: >2 Midnights Patient will require the following post-hospital care: None Practitioner: I am a practitioner with admitting privileges, knowledge of patient current condition, hospital course, and medical plan of care. Services: Services provided to patient in accordance with Admission requirements found in Title 42 Section 412.3 of the Code of Federal Regulations <Cesar Smith - Last Filed: 01/29/21 21:32> Patient History Date of Service: 01/29/21 Primary Care Provider: none Reason for admission: CHF exacerbation History of Present Illness: Ms. Botello is a 55 yo F with CHF on 3L Home O2, HTN, T2DM, fibromyalgia here t perri for worsening SOB, GLORIA, orthopnea, PND, edema for the past few days. She says she has had to start sleeping sitting up. She feels like she cannot take deep breaths. She had no relief of her symptoms with ProAir. She initially had left sided 5/10 achy chest pain that resolved with improvement of her BP. She says the chest pain felt like it was originating from her lungs. She takes bumex 2mg BID at home. For her past CHF exacerbations, she says she has done well with IV bumex with the addition of aldactone for 30 days at discharge. BNP 409. CXR shows moderate bilateral pulmonary opacities likely representing pulmonary edema, heart is moderately enlarged in size. Home medications list reviewed: Yes - Past Medical/Surgical History Diabetic: Yes -: CHF on Home O2 -: HTN -: T2DM -: fibromyalgia -: cervical stenosis -: neuropathy -: Csections x 5, last one in 1992 - Family History Mother -: Heart disease Father -: Heart disease, Hypertension, Diabetes - Social History Smoking Status: Former smoker Alcohol use: No CD- Drugs: No Caffeine use: No Place of Residence: Home <Michelle Smithjames Bernard - Last Filed: 01/29/21 21:32> Date of Service: 01/30/21 <erickson grayson - Last Filed: 01/30/21 13:06> Allergies acetaminophen [From [place]] Allergy (Verified 01/30/21 01:21) Shortness of breath hydrocodone [From [place]] Allergy (Verified 01/30/21 01:21) Shortness of breath Home Medications: Bumetanide [Bumex] 1 mg PO BID 01/29/21 Gabapentin 300 mg PO TID 01/29/21 Insulin 70/30 NPH/Reg Human [Novolin 70/30*] 60 unit SQ BID 01/29/21 Ketorolac [Toradol] 10 mg PO BID PRN 01/29/21 Metoprolol Tartrate 50 mg PO BID 01/29/21 Nifedipine [Procardia] 10 mg PO BID 01/29/21 Olmesartan Medoxomil 40 mg PO DAILY 01/30/21 Review of Systems General: Unremarkable Eyes: Unremarkable ENT: Unremarkable Respiratory: Shortness of Breath, SOB with Excertion, Pleuritic Pain, As per HPI Cardiovascular: Chest Pain, Orthopnea, Paroxysmal Noc. Dyspnea, Edema, As per HPI Gastrointestinal: Unremarkable Genitourinary: Unremarkable Musculoskeletal: Unremarkable Integumentary: Unremarkable Neurological: Unremarkable Lymphatics: Unremarkable <Cesar Smith - Last Filed: 01/29/21 21:32> Physical Examination - Physical Exam General: Alert, In no apparent distress, Oriented x3, Cooperative HEENT: Atraumatic, Normocephalic, PERRLA, Mucous membr. moist/pink, EOMI, Sclerae nonicteric Neck: Supple, 2+ carotid pulse no bruit, No Thyromegaly, No LAD Respiratory: Diminished, Crackles/rales Cardiovascular: Normal pulses, Regular rate/rhythm, Normal S1 S2, No gallops, No rubs, No murmurs, Edema Capillary refill: <2 Seconds Gastrointestinal: Normal bowel sounds, Soft and benign, Non-distended, No tenderness, No masses, No rebound, No guarding, Ascites Musculoskeletal: No clubbing, No swelling, No contractures, No erythema, No tenderness, No warmth Integumentary: No rashes, No breakdown, No significant lesion, No tenderness/swelling, No erythema, No warmth, No cyanosis Neurological: Normal gait, Normal speech, Normal strength at 5/5 x4 extr, Normal tone, Sensation intact, Cranial nerves 3-12 intact, Normal affect Lymphatics: No axilla or inguinal lymphadenopathy - Studies Laboratory Data (last 24 hrs) 01/29/21 16:30: PT 13.2 H, INR 1.15 01/29/21 16:30: WBC 8.00, Hgb 11.2 L, Hct 34.4 L, Plt Count 248 01/29/21 16:30: Sodium 138, Potassium 4.1, BUN 11, Creatinine 0.51 L, Glucose 259 H, Magnesium 2.2, Total Bilirubin 0.4, AST 12 L, ALT 9 L, Alkaline Phosphatase 91 <LuisCesar S - Last Filed: 01/29/21 21:32> - Studies Laboratory Data (last 24 hrs) 01/29/21 16:30: PT 13.2 H, INR 1.15 01/29/21 16:30: WBC 8.00, Hgb 11.2 L, Hct 34.4 L, Plt Count 248 01/29/21 16:30: Sodium 138, Potassium 4.1, BUN 11, Creatinine 0.51 L, Glucose 259 H, Magnesium 2.2, Total Bilirubin 0.4, AST 12 L, ALT 9 L, Alkaline Phosphatase 91 <erickson grayson - Last Filed: 01/30/21 13:06> Assessment and Plan - Problems (Diagnosis) (1) CHF (congestive heart failure) Current Visit: Yes Status: Acute Qualifiers: Heart failure type: unspecified Heart failure chronicity: acute on chronic Qualified Code(s): I50.9 - Heart failure, unspecified (2) Hypertension Current Visit: Yes Status: Chronic Qualifiers: Hypertension type: essential hypertension Qualified Code(s): I10 - Es sential (primary) hypertension (3) Neuropathy Current Visit: Yes Status: Chronic (4) Type 2 diabetes mellitus Current Visit: Yes Status: Chronic Qualifiers: Diabetes mellitus half-way insulin use: without half-way use Diabetes mellitus complication status: without complication Qualified Code(s): E11.9 - Type 2 diabetes mellitus without complications (5) Fibromyalgia Current Visit: Yes Status: Chronic - Plan bumex 2mg IV BID, will consider adding aldactone cardiology consulted daily weights, fluid restrictions, continue O2 and pulse ox trend troponins, telemetry will check orthostatics, PT evaluation - patient reports dizzy spells that her PCP attributed to deconditioning will restart home medications, stable, continue to monitor sliding scale insulin and Accuchecks continue with gabapentin for neuropathy Discharge Plan: Home Plan to discharge in: 48 Hours - Advance Directives Does patient have a Living Will: No Does patient have a Durable POA for Healthcare: No - Code Status/Comfort Care Code Status Assessed: Yes (full code) Critical Care: No Time Spent Managing Pts Care (In Minutes): 70 <Cesar Smith - Last Filed: 01/29/21 21:32> Physician Review: Patient Assessed, Agree with Above Assessment and Plan Physician Review Additional Text: CHF exacerbation. Obesity hypoventilation Plan: IV lasix Consult to cardiology. <erickson grayson - Last Filed: 01/30/21 13:06>
[2021-01-29] MEDS: GABAPENTIN 300 MG CAP PO SCH (21:41)
[2021-01-29] MEDS: INSULIN -REGULAR HUMAN 50 UNIT/0.5 ML ML SQ SCH (21:45)
[2021-01-29] MEDS: BUMETANIDE 1 MG/4 ML VIAL IV SCH (21:50)
[2021-01-29 23:16] LABS: Troponin I < 0.02 ng/mL (0.0-0.045)
[2021-01-30] MEDS: KETOROLAC 30 MG/ML INJ IV PRN (01:40)
[2021-01-30 04:59] LABS: Urine Appearance CLEAR (Clear); Urine Bilirubin NEGATIVE (Negataive); Urine Blood NEGATIVE (Negative); Urine Color YELLOW (Yellow); Urine Glucose 1+ (Negative); Urine Protein 1+ (Negative); Urine Urobilinogen 0.2 mg/dL (0.2-1.0)
[2021-01-30 05:09] LABS: Urine Microscopic Reflex ORDER UMIC
[2021-01-30 05:19] LABS: Urine Bacteria 20-50 /HPF (<20); Urine Mucus 1+ /HPF (NONE SEEN)
[2021-01-30 05:20] LABS: Urine Amorphous Sediment 1+ /HPF (NONE SEEN)
[2021-01-30 07:11] LABS: Absolute Lymphocytes (CBC) 2.4 K/uL (0.7-4.9); Basophils % 0.4 % (0-1.3); Hematocrit 32.7 % (36.0-45.0); Lymphocytes % 30.5 % (15.3-44.8); MPV 8.6 fL (7.6-11.3)
[2021-01-30 07:27] LABS: ALT/SGPT 10 U/L (12-78); AST/SGOT 9 U/L (15-37); Albumin 2.6 g/dL (3.4-5.0); Alkaline Phosphatase 86 U/L (45-117); BUN Blood Urea Nitrogen 13 mg/dL (7-18); Bilirubin Total 0.3 mg/dL (0.2-1.0); Glucose Level 277 mg/dL (74-106); HDL Cholesterol 44 mg/dL (40-60); LDL Cholesterol, Calculated 135 (<130); Magnesium 2.2 mg/dL (1.8-2.4); Phosphorus 3.4 mg/dL (2.5-4.9); Potassium 3.7 mmol/L (3.5-5.1); Protein, Total 7.2 g/dL (6.4-8.2); Sodium Level 140 mmol/L (136-145); Troponin I < 0.02 ng/mL (0.0-0.045)
[2021-01-30 07:29] LABS: Bicarbonate 42 mmol/L (21-32)
[2021-01-30] MEDS: GABAPENTIN 300 MG CAP PO SCH ×3 (08:14→20:58)
[2021-01-30] MEDS: METOPROLOL TAR 50 MG TAB PO SCH ×2 (08:14→20:59)
[2021-01-30] MEDS: ENOXAPARIN 40 MG/0.4 ML SQ SCH (08:14)
[2021-01-30] MEDS: INSULIN -REGULAR HUMAN 50 UNIT/0.5 ML ML SQ SCH ×4 (08:15→21:12)
[2021-01-30] MEDS ORDERED: LOSARTAN POTASSIUM 50 MG TABLET PO SCH (09:00)
[2021-01-30] MEDS ORDERED: NIFEdipine 10 MG CAP PO SCH (09:00)
--- NOTE | 2021-01-30 10:17 | EKG ---
Test Date: 2021-01-29 Test Time: 15:20:26 Basket Machine Operator: MIREILLE MEASUREMENT RESULTS: Intervals: Rate: 75 [place]: 158 QRSD: 84 QT: 392 QTc: 437 [place]: P: 4 [place]: 158 QRS: 0 T: 36 INTERPRETIVE STATEMENTS: Normal sinus rhythm Normal ECG No previous ECG available for comparison Electronically Signed On 01-30-21 10:15:23 CDT by Cecil Ramírez
[2021-01-30 11:12] LABS: Arterial Blood Carboxyhemoglob 1.8 % (0-1.5); Blood Gas Oxyhemoglobin 91.4 % (94-97)
[2021-01-30] MEDS: BUMETANIDE 1 MG/4 ML VIAL IV SCH ×2 (11:46→20:56)
[2021-01-30] MEDS ORDERED: GLUCAGON 1 MG/VIAL IM PRN (13:12)
[2021-01-30] MEDS ORDERED: D50W 25 GM/50 ML SYRINGE IV PRN (13:12)
--- NOTE | 2021-01-30 13:12 | P.PN ---
Subjective Date of Service: 01/30/21 Primary Care Provider: none Chief Complaint: CHF exacerbation Patient reports feeling better but not back to baseline. Her pCO2 is elevated to 70. Physical Examination - Vital Signs Temperature: 97.5 F Blood Pressure: 157/71 Pulse: 70 Respirations: 18 Pulse Ox (%): 96 - Physical Exam General: Alert, In no apparent distress Neck: Supple, JVD not distended Respiratory: Clear to auscultation bilaterally, Diminished (Diffuse) Cardiovascular: Regular rate/rhythm, Normal S1 S2, No murmurs, Edema (Trace bilateral pitting edema of lower extremities.) Gastrointestinal: Soft and benign, Non-distended, No tenderness Integumentary: No rashes, No erythema Neurological: Normal speech, Normal strength at 5/5 x4 extr, Cranial nerves 3-12 intact - Studies Laboratory Data (last 24 hrs) 01/29/21 16:30: PT 13.2 H, INR 1.15 01/29/21 16:30: WBC 8.00, Hgb 11.2 L, Hct 34.4 L, Plt Count 248 01/29/21 16:30: Sodium 138, Potassium 4.1, BUN 11, Creatinine 0.51 L, Glucose 259 H, Magnesium 2.2, Total Bilirubin 0.4, AST 12 L, ALT 9 L, Alkaline Phosphatase 91 Assessment And Plan - Current Problems (Diagnosis) (1) Acute on chronic diastolic heart failure Current Visit: Yes Status: Acute (2) Obesity hypoventilation syndrome Current Visit: Yes Status: Acute (3) Acute respiratory failure with hypercapnia Current Visit: Yes Status: Acute (4) Hypertension Current Visit: Yes Status: Chronic Qualifiers: Hypertension type: essential hypertension Qualified Code(s): I10 - Essential (primary) hypertension (5) Type 2 diabetes mellitus Current Visit: Yes Status: Chronic Qualifiers: Diabetes mellitus terminal worker insulin use: without terminal worker use Diabetes mellitus complication status: without complication Qualified Code(s): E11.9 - Type 2 diabetes mellitus without complications - Plan Continue IV Bumex for 1 more day. BiPAP Continue home antihypertensives. Cardiology input appreciated. Dr. Ramírez recommend outpatient echocardiogram and follow up with him in the office. Will monitor patient on IV Bumex for 1 more day and then possible discharge tomorrow a.m. Resume Novolin 70/30 Insulin sliding scale. Physician Review: Patient Assessed, Agree with Above Assessment and Plan
[2021-01-30] MEDS ORDERED: GABAPENTIN 100 MG CAP ONE (21:03)
[2021-01-30] MEDS: NIFEdipine 10 MG CAP PO SCH (21:10)
[2021-01-30] MEDS: INSULIN 70/30 100 UNITS/ML SQ SCH (21:11)
[2021-01-30 22:35] VITALS: BMI 44.0
[2021-01-31 07:25] LABS: Absolute Lymphocytes (CBC) 3.2 K/uL (0.7-4.9); Basophils % 0.5 % (0-1.3); Hematocrit 32.2 % (36.0-45.0); Lymphocytes % 40.9 % (15.3-44.8); MPV 8.9 fL (7.6-11.3); RBC Red Blood Cell Count 3.85 M/uL (3.86-4.86)
[2021-01-31] MEDS: INSULIN -REGULAR HUMAN 50 UNIT/0.5 ML ML SQ SCH ×4 (07:30→23:21)
[2021-01-31 07:59] LABS: BUN Blood Urea Nitrogen 16 mg/dL (7-18); Glucose Level 150 mg/dL (74-106); Potassium 3.4 mmol/L (3.5-5.1); Sodium Level 140 mmol/L (136-145)
[2021-01-31 08:03] LABS: Bicarbonate 43 mmol/L (21-32)
[2021-01-31] MEDS: METOPROLOL TAR 50 MG TAB PO SCH ×2 (09:37→23:22)
[2021-01-31] MEDS: GABAPENTIN 300 MG CAP PO SCH ×3 (09:38→23:21)
[2021-01-31] MEDS: ENOXAPARIN 40 MG/0.4 ML SQ SCH (09:38)
[2021-01-31] MEDS: BUMETANIDE 1 MG/4 ML VIAL IV SCH ×2 (09:38→23:22)
[2021-01-31] MEDS: VALSARTAN 40 MG TAB PO SCH (09:38)
[2021-01-31] MEDS: INSULIN 70/30 100 UNITS/ML SQ SCH ×2 (09:39→23:23)
[2021-01-31] MEDS ORDERED: POTASSIUM CL SA 10 MEQ TAB PO ONE (12:00)
--- NOTE | 2021-01-31 12:25 | CON ---
Date of Consultation: 01/30/2021 Reason For Admission And Consultation: Congestive heart failure. History Of Present Illness: Ms. Botello is a 55-year-old woman has a history of morbid obesity, diab etes, fibromyalgia, spinal stenosis, congestive heart failure, hypertension, and dyslipidemia. I am assuming the congestive heart failure is as chronic diastolic. She is out of town, just [place] [facility] [place]. Came in with shortness of breath, PND, pedal edema. No palpitation. No chest pain. No syncope. No fever or no chills. Allergies: TYLENOL, . Review of Systems: Negative. Social History: Negative. Family History: Noncontributory. Medications: At home include inhalers, Bumex, metoprolol, insulin, losartan, and Neurontin. Physical Examination: General: She weighed 307 pounds. No acute distress, feeling much better. Vital Signs: Stable, afebrile, sinus rhythm. HEENT: Negative. Neck: Supple. No bruit. Chest: Clear. Cardiac: Revealed a regular rhythm and rate with S4 gallops. Abdomen: Obese, but benign. Extremities: Revealed no clubbing, cyanosis. She has 1+ edema. Diagnostic Data: Showed a glucose of 227. She has significant dyslipidemia. Her BNP was 409. Impression And Plan: 1.Aoais-st-pympfvi diastolic congestive heart failure. The patient is being treated appropriately w ith beta-blockers and Bumex. 2.Diabetes. She is on insulin. 3.Neuropathy, on Neurontin. 4.Fibromyalgia. 5.Spinal stenosis. 6.Hypertension, well controlled. She is on losartan and metoprolol. 7.Dyslipidemia. I do not see that she is taking any statin and she should be on a statin. I am com fortable with her present regimen. She is improved and she needs an echocardiogram and that certainl y can be done as an outpatient if she does not stay, but I will continue to follow her as needed. WOO/PENELOPE Voice ID: [id number] Report ID: [id number]
--- NOTE | 2021-01-31 14:28 | P.PN ---
Subjective Date of Service: 01/31/21 Primary Care Provider: none Chief Complaint: CHF exacerbation Patient reports feeling better but not back to baseline. She stated her leg is still swollen. She used BiPAP for only 3 hours. Physical Examination - Vital Signs Temperature: 97.9 F Blood Pressure: 136/62 Pulse: 67 Respirations: 20 Pulse Ox (%): 97 - Physical Exam General: Alert, In no apparent distress Neck: JVD not distended Respiratory: Clear to auscultation bilaterally, Normal air movement Cardiovascular: Regular rate/rhythm, Normal S1 S2, Edema (1+ bilateral lower extremity pitting edema.) Gastrointestinal: Normal bowel sounds, Soft and benign, Non-distended Musculoskeletal: No clubbing, No tenderness Integumentary: No rashes Neurological: Normal strength at 5/5 x4 extr Assessment And Plan - Current Problems (Diagnosis) (1) Acute on chronic diastolic heart failure Current Visit: Yes Status: Acute (2) Obesity hypoventilation syndrome Current Visit: Yes Status: Acute (3) Acute respiratory failure with hypercapnia Current Visit: Yes Status: Acute (4) Hypertension Current Visit: Yes Status: Chronic Qualifiers: Hypertension type: essential hypertension Qualified Code(s): I10 - Essential (primary) hypertension (5) Type 2 diabetes mellitus Current Visit: Yes Status: Chronic 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 Increase dose as patient report no significant response. Monitor renal function BiPAP as tolerated. Continue home antihypertensives. Cardiology input appreciated. Continue Novolin 70/30 Insulin sliding scale. Physician Review: Patient Assessed, Agree with Above Assessment and Plan
[2021-01-31] MEDS: KETOROLAC 30 MG/ML INJ IV PRN (17:42)
[2021-01-31] MEDS: NIFEdipine 10 MG CAP PO SCH (23:22)
[2021-02-01 05:45] LABS: Absolute Lymphocytes (CBC) 3.4 K/uL (0.7-4.9); Basophils % 0.9 % (0-1.3); Lymphocytes % 41.1 % (15.3-44.8); MPV 8.9 fL (7.6-11.3); RBC Red Blood Cell Count 4.36 M/uL (3.86-4.86)
[2021-02-01 06:02] LABS: BUN Blood Urea Nitrogen 19 mg/dL (7-18); Glucose Level 74 mg/dL (74-106); Potassium 3.3 mmol/L (3.5-5.1); Sodium Level 139 mmol/L (136-145)
[2021-02-01 06:11] LABS: Bicarbonate 43 mmol/L (21-32)
[2021-02-01] MEDS ORDERED: POTASSIUM CL SA 10 MEQ TAB PO ONE (07:30)
[2021-02-01] MEDS: INSULIN -REGULAR HUMAN 50 UNIT/0.5 ML ML SQ SCH ×3 (07:30→16:30)
[2021-02-01] MEDS: VALSARTAN 40 MG TAB PO SCH (09:17)
[2021-02-01] MEDS: GABAPENTIN 300 MG CAP PO SCH ×2 (09:17→14:33)
[2021-02-01] MEDS: METOPROLOL TAR 50 MG TAB PO SCH (09:18)
[2021-02-01] MEDS: INSULIN 70/30 100 UNITS/ML SQ SCH (09:18)
[2021-02-01] MEDS: ENOXAPARIN 40 MG/0.4 ML SQ SCH (09:18)
[2021-02-01] MEDS: BUMETANIDE 1 MG/4 ML VIAL IV SCH (09:24)
--- NOTE | 2021-02-01 09:43 | P.DS ---
Admission Date: 01/29/21 Discharge Date: 02/01/21 Primary Care Provider: none Disposition: ROUTINE DISCHARGE Discharge Condition: FAIR Reason for Admission: CHF exacerbation - Problems (1) Acute on chronic diastolic heart failure Current Visit: Yes Status: Acute (2) Obesity hypoventilation syndrome Current Visit: Yes Status: Acute (3) Acute respiratory failure with hypercapnia Current Visit: Yes Status: Acute (4) Hypertension Current Visit: Yes Status: Chronic Qualifiers: Hypertension type: essential hypertension Qualified Code(s): I10 - Essential (primary) hypertension (5) Type 2 diabetes mellitus Current Visit: Yes Status: Chronic Qualifiers: 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 Botello is a 55 yo F with CHF on 3L Home O2, HTN, T2DM, fibromyalgia presented to the ED for worsening SOB, GLORIA, orthopnea, PND, edema. She used her inhaler without relief. She initially had left sided 5/10 achy chest pain that resolved with improvement of her BP. She is on bumex 2mg BID at home. For her past CHF exacerbations, she says she has done well with IV bumex with the addition of aldactone for 30 days at discharge. BNP 409. CXR showed moderate bilateral pulmonary opacities likely representing pulmonary edema, heart moderately enlarged in size. Patient admitted for further management. Hospital Course: Patient admitted to the medical floor and treated for CHF exacerbation with IV Bumex. She was also alkalotic. Arterial blood gas showed pCO2 retention. Patient suspected to have obstructive sleep apnea and obesity hypoventilation syndrome. She is advised to see a adaptive physical educator for evaluation for sleep apnea. Patient used BiPAP for a few hrs per day during the hospital stay. Echocardiogram was done preliminary report: normal EF. Patient has clinically improved. She is discharged to continue her usual Bumex dose. She is prescribed Aldactone take along with the Bumex. She is referred to Dr. Cuello for evaluation for sleep apnea. She had a urine culture done which showed mixed growth. Patient is prescribed ciprofloxacin for 3 days. Her lipid profile is significantly elevated. Patient prescribed Lipitor. She is informed to find a primary care physician to manage her chronic medical conditions. She stated she is waiting for her Medicare to kick in in there to see her recommended provided. I also gave her information about [facility]. Vital Signs/Physical Exam: Temp Pulse Resp BP Pulse Ox 97.2 F 66 17 146/65 H 95 02/01/21 04:00 02/01/21 09:24 02/01/21 04:00 02/01/21 09:24 02/01/21 04:00 General: Obese Neck: JVD not distended Respiratory: Clear to auscultation bilaterally, Diminished Cardiovascular: Regular rate/rhythm, Normal S1 S2, Edema (1+ bilateral lower extremity pitting edema) Gastrointestinal: Soft and benign, Non-distended, No tenderness Musculoskeletal: No tenderness Integumentary: No rashes Neurological: Normal strength at 5/5 x4 extr Laboratory Data at Discharge: WBC 8.30 K/uL (4.3-10.9) 02/01/21 05:06 Hgb 11.9 g/dL (12.0-15.0) L 02/01/21 05:06 Hct 37.0 % (36.0-45.0) 02/01/21 05:06 Plt Count 279 K/uL (152-406) D 02/01/21 05:06 PT 13.2 SECONDS (9.5-12.5) H 01/29/21 16:30 INR 1.15 01/29/21 16:30 Sodium 139 mmol/L (136-145) 02/01/21 05:06 Potassium 3.3 mmol/L (3.5-5.1) L 02/01/21 05:06 BUN 19 mg/dL (7-18) H 02/01/21 05:06 Creatinine 0.60 mg/dL (0.55-1.3) 02/01/21 05:06 Glucose 74 mg/dL (74-106) 02/01/21 05:06 Phosphorus 3.4 mg/dL (2.5-4.9) 01/30/21 06:47 Magnesium 2.2 mg/dL (1.8-2.4) 01/30/21 06:47 Total Bilirubin 0.3 mg/dL (0.2-1.0) 01/30/21 06:47 AST 9 U/L (15-37) L 01/30/21 06:47 ALT 10 U/L (12-78) L 01/30/21 06:47 Alkaline Phosphatase 86 U/L (45-117) 01/30/21 06:47 Troponin I < 0.02 ng/mL (0.0-0.045) 01/30/21 12:39 Triglycerides 214 mg/dL (<150) H 01/30/21 06:47 Cholesterol 222 mg/dL (<200) H 01/30/21 06:47 HDL Cholesterol 44 mg/dL (40-60) 01/30/21 06:47 Cholesterol/HDL Ratio 5.05 01/30/21 06:47 Home Medications: Olmesartan Medoxomil 40 mg PO DAILY 01/30/21 Atorvastatin Calcium [Lipitor] 40 mg PO DAILY #30 tablet 02/01/21 Bumetanide [Bumex] 2 mg PO BID #60 02/01/21 Ciprofloxacin HCl [Cipro 500 MG Tablet] 500 mg PO BID #6 tab 02/01/21 Gabapentin 300 mg PO TID #90 02/01/21 Insulin 70/30 NPH/Reg Human [Novolin 70/30*] 60 unit SQ BID #10 ml 02/01/21 Ketorolac [Toradol*] 10 mg PO BID PRN #30 tab 02/01/21 Metoprolol Tartrate 50 mg PO BID #60 02/01/21 Nifedipine [Procardia] 10 mg PO BID #60 02/01/21 Spironolactone [Aldactone] 25 mg PO DAILY #30 tab 02/01/21 New Medications: Spironolactone [Aldactone] 25 mg PO DAILY #30 tab Bumetanide [Bumex] 2 mg PO BID #60 Ciprofloxacin HCl [Cipro 500 MG Tablet] 500 mg PO BID #6 tab Gabapentin 300 mg PO TID #90 Atorvastatin Calcium [Lipitor] 40 mg PO DAILY #30 tablet Metoprolol Tartrate 50 mg PO BID #60 Insulin 70/30 NPH/Reg Human [Novolin 70/30*] 60 unit SQ BID #10 ml Nifedipine [Procardia] 10 mg PO BID #60 Ketorolac [Toradol*] 10 mg PO BID PRN #30 tab PRN Reason: Pain Scale 2-4 (Mild) Diet: AHA Activity: Ad ana m Followup: Karl Cuello MD [ACTIVE - CAN ADMIT] - (within 2-4 weeks.) OOT,OOT [Primary Care Provider] - Time spent managing pt's care (in minutes): 36
[2021-02-01 09:54] VITALS: O2SAT 97
[2021-02-01] MEDS ORDERED: D50W 25 GM/50 ML VIAL IV PRN (16:00)
[2021-02-01 18:38] VITALS: BP 98/58; TEMP 97.8
--- NOTE | 2021-02-02 08:22 | ECHO ---
HEIGHT: 5 ft 10 in WEIGHT: 295 lb 12.8 oz DATE OF STUDY: 02/01/[address]: erickson grayson 2-DIMENSIONAL: YES M.MODE: YES DOPPLER: YES COLOR FLOW: YES TDS: YES PORTABLE: DEFINITY: BUBBLE STUDY: DIAGNOSIS: CONGESTIVE HEART FAILURE CARDIAC HISTORY: CATHERIZATION: YES SURGERY: NO PROSTHETIC VALVE: NO PACEMAKER: NO MEASUREMENTS (cm) DIASTOLIC (NORMALS) SYSTOLIC (NORMALS) IVSd 1.1 (0.6-1.2) LA Diam 3.8 (1.9-4.0) LVEF 56% LVIDd 3.2 (3.5-5.7) LVIDs 2.3 (2.0-3.5) %FS 28% LVPWd 1.2 (0.6-1.2) Ao Diam 2.8 (2.0-3.7) 2 DIMENSIONAL ASSESSMENT: RIGHT ATRIUM: NOT SEEN LEFT ATRIUM: NORAML RIGHT VENTRICLE: NORMAL LEFT VENTRICLE: NORMAL TRICUSPID VALVE: NOT SEEN MITRAL VALVE: NORMAL PULMONIC VALVE: NOT SEEN AORTIC VALVE: NORMAL PERICARDIAL EFFUSION: NONE AORTIC ROOT: NORMAL LEFT VENTRICULAR WALL MOTION: UNABLE TO EVAULATE (POOR WINDOWS) DOPPLER/COLOR FLOW: SEE BELOW COMMENTS: OVERALL LEFT VENTRICULAR EJECTION FRACTION APPEARS NORMAL 55-60 %. POOR STUDY. TECHNOLOGIST: NIKKI COFFMAN
== END 2021-02-01 20:50 | disposition home or self-care (01) | DRG 291 ==
LOC: ER 15:14 → ERHOLD 19:05 → 4TH 20:41 → 2ND 01-31 20:13
PROVIDERS: ADMIT Internal Medicine; ATTEND Internal Medicine
PROC: 5A09357 Assistance with Respiratory Ventilation, Less than 24 Consecutive Hours, Continuous Positive Airway Pressure (ICD-10-PCS; principal; 2021-01-30)
DX: I11.0 Hypertensive heart disease with heart failure (principal); J96.02 Acute respiratory failure with hypercapnia; E66.2 Morbid (severe) obesity with alveolar hypoventilation; Z68.41 Body mass index [BMI] 40.0-44.9, adult; I50.33 Acute on chronic diastolic (congestive) heart failure; E11.40 Type 2 diabetes mellitus with diabetic neuropathy, unspecified; M48.00 Spinal stenosis, site unspecified; E78.5 Hyperlipidemia, unspecified; M79.7 Fibromyalgia; Z88.5 Allergy status to narcotic agent; Z79.899 Other long term (current) drug therapy; Z99.81 Dependence on supplemental oxygen; Z87.891 Personal history of nicotine dependence; Z88.8 Allergy status to other drugs, medicaments and biological substances; Z79.4 Long term (current) use of insulin; Z20.822 Contact with and (suspected) exposure to COVID-19
CPT/HCPCS: 36415; 71045; 80048; 80053; 80061; 80076; 81003; 81015; 82805; 82947; 83735; 83880; 84100; 84132; 84439; 84443; 84484; 85025; 85610; 87086; 87088; 93005; 93306; 94660; 94760; 96374; 97116; 97161; 97530; 99285; J1650; J1815; J1940; U0003